=== PATIENT | female | born 1995 ===

== ENCOUNTER → 2019-05-30 | Outpatient (CLI) | payer SELFPAY ==
--- NOTE | 2019-05-30 14:12 | RADIOLOGY REPORT (SQ) ---
EXAM DESCRIPTION: U/S [id number] TRNABD 1GES W/ODOP COMPLETED DATE/TIME: 05/30/2019 1:37 pm REASON FOR STUDY: ENCTR FOR SUPERVISION OF OTHER NORMAL , 1ST TRIMESTER (Z34.81) Z34.81 EN COUNTER FOR SUPRVSN OF NORMAL , FIRST TRIM COMPARISON: None. TECHNIQUE: Transabdominal static and realtime grayscale images acquired of the pelvis. Additional se lected spectral and color Doppler images recorded. All images stored on PACs. [facility]. CLINICAL DATES: 10 weeks 1 day LIMITATIONS: None. FINDINGS: FETUS: Single Living intrauterine . ULTRASOUND EGA: 10 weeks 6 days. ULTRASOUND ABI: 12/20/2019 EFW: Not applicable less than 20 weeks. CRL: 3.92 cm. FHR: 160 beats per minute. SURVEY: Too early to assess. Suspect physiological mid gut herniation. AMNIOTIC FLUID: Adequate amount. PLACENTA: Not yet developed due to early gestation. SUBCHORIONIC BLEED: Yes. SIZE OF BLEED: 2.6 x 1.0 x 0.8 cm. UTERUS: No masses. No anomalies. CERVICAL LENGTH: 2.1 cm. Closed. RIGHT ADNEXA: Normal ovary with normal vascular flow. No adnexal free fluid. No adnexal masses. LEFT ADNEXA: Normal ovary with normal vascular flow. There is a complex 1.8 cm left ovarian cyst. No adnexal free fluid. No adnexal masses. FREE FLUID: None. OTHER: No other significant finding. IMPRESSION: LIVING INTRAUTERINE . SUSPECT PHYSIOLOGIC MID GUT HERNIATION. FOLLOW-UP AT 20 WEEKS GESTATIONAL AGE IS RECOMMENDED. EGA 10 WEEKS 6 DAYS. Trimester of : First trimester - 0 to 13 weeks. TECHNICAL DOCUMENTATION: JOB ID: [id number] 2010 [employer]- All Rights Reserved rev-08/05 Reading location - IP/workstation name: [email or web address]
== END ==
LOC: RAD 13:04
PROVIDERS: ATTEND Midwife
DX: Z34.81 Encounter for supervision of other normal pregnancy, first trimester (principal)
CPT/HCPCS: 76801

== ENCOUNTER 2019-11-21 16:43 | Outpatient (CLI) | payer MEDICAID ==
--- NOTE | 2019-11-21 18:53 | Non Stress Test Report ---
Non Stress Test Datetime Report Generated by CPN: 11/21/2019 18:53 DEMOGRAPHIC Test Number: 1 EGA NST: 35.1 INDICATION Indication for Study (NST) Other: repeat sent from office VITAL SIGNS Temperature - NST: 99.1 Pulse - NST: 78 RESP - NST: 16 NBPSYS NST: 120 NBPDIA NST: 68 MONITORING Monitor Explained: Monitor Explained; Test Explained; Patient Verbalized Understanding Time on Monitor: 11/21/2019 16:58 Time off Monitor: 11/21/2019 18:02 NST INTERVENTIONS NST Interventions: PO Hydration; Reposition Patient Physician Notified NST: Dr Perez BABY A: [id number] BABY A Movement : Present Contraction Frequency : occasional FHR Baseline : 150 Accelerations : 15X15 Decelerations : None Variability : Moderate 6-25bpm NST Review: Meets Criteria for Reactive NST NST Review and Verified By : KENDELL Haq Results: Reactive NST REPORT Report Trigger: Send Report
== END 2019-11-21 18:17 | disposition home or self-care (01) ==
LOC: LC 16:43
PROVIDERS: ATTEND Obstetrics & Gynecology
DX: Z34.83 Encounter for supervision of other normal pregnancy, third trimester (principal); Z3A.35 35 weeks gestation of pregnancy
CPT/HCPCS: 59025; 82962

== ENCOUNTER 2019-12-19 22:20 | Inpatient (IN) | payer MEDICAID ==
[2019-12-19] MEDS ORDERED: RINGERS SOLUTION,LACTATED 1,000 ML IV ONE (22:33)
[2019-12-19] MEDS ORDERED: RINGERS SOLUTION,LACTATED 1,000 ML IV PRN (22:33)
[2019-12-19] MEDS ORDERED: MISOPROSTOL 0.2 MG TABLET ONE (22:39)
[2019-12-19] MEDS ORDERED: LIDOCAINE 1% INJ-PF (10 MG/ML) 30 ML SDV ONE (22:39)
[2019-12-19] MEDS ORDERED: OXYTOCIN/0.9 % SODIUM CHLORIDE 30 UNIT/500 ML RTUINJ ONE (22:39)
[2019-12-19] MEDS ORDERED: OXYTOCIN 10 UNIT/ML VIAL ONE (22:39)
--- NOTE | 2019-12-19 22:39 | Admission Physical ---
Datetime Report Generated by CPN: 12/19/2019 22:38 CURRENT ADMISSION Chief Complaint: Uterine Contractions Chief Complaint Other: Complaints of contractions every 3 minutes. Very painful. NO LOF or VB. Good FM. Admit Impression : Active Labor Admit Plan: Admit to Unit; Initiate Labor Protocol ALLERGIES Medication Allergies: No Medication Allergies: No Known Allergies (11/21/2019) Latex: No Latex Allergies OBSTETRICAL HISTORY EDC: 12/25/2019 00:00 : 3 Para: 0 IAB: 2 PHYSICAL EXAM General: Normal HEENT: Normal Neurologic: Normal Thyroid: Normal Heart: Normal Lungs: Normal Breast: Normal Back: Normal Abdomen: Normal Genitourinary Exam: Normal Extremities: Normal DTRs: Normal Pelvic Type: Adequate Vital Signs: Reviewed; Within Normal Limits VAGINAL EXAM Dilatation: 6 Effacement: 90 Station: -1 Contraction Comments: every 3 minutes MEMBRANES Membranes: Intact FETUS A EGA: 39.1 Monitoring: External US FHR- Baseline: 150 Variability: Moderate 6-25bpm Accelerations: 15X15 Decelerations: None FHR Category: Category I Presentation: Vertex Admit Comment: at 39.1 wks EGA in active laobr -admit to LDR -NPO and IVFs, LR at 125 cc/hr after bolus of 1 liter -CEFM and toco -GBS negative -Anticipate -desires natural delivery INFORMED CONSENT Informed Consent Obtained: Vaginal Delivery; Vacuum/Forceps Assist; Risks, Benefits and Alternatives Discussed Signature: with User ID: [email or web address] : with User ID: [email or web address]
[2019-12-19 23:00] LABS: ABSOLUTE LYMPHOCYTES (AUTO) 2.8 10^3/uL (0.5-4.7); ABSOLUTE MONOCYTES (AUTO) 0.9 10^3/uL (0.1-1.4); ABSOLUTE NEUT (AUTO) 7.1 10^3/uL (1.7-8.2); BASOPHILS % (AUTO) 0.2 % (0-2); EOSINOPHILS % (AUTO) 0.4 % (0-6); HEMATOCRIT 35.8 % (36.0-47.0); HEMOGLOBIN 12.6 g/dL (12.0-15.5); LYMPHOCYTES % (AUTO) 25.8 % (13-45); MEAN CORPUSCULAR HGB CONC 35.1 g/dL (32.0-36.0); MEAN CORPUSCULAR VOLUME 88 fl (80-97); PLATELET COUNT 118 10^3/uL (150-450); RED BLOOD COUNT 4.05 10^6/uL (3.72-5.28); RED CELL DISTRIBUTION WIDTH 14.4 % (11.5-14.0); SEGMENTED NEUTROPHILS % (AUTO) 65.6 % (42-78); TOTAL CELLS COUNTED % (AUTO) 100 %; WHITE BLOOD COUNT 10.8 10^3/uL (4.0-10.5)
[2019-12-19 23:14] LABS: APPEARANCE,URINE SLIGHTLY-CLOUDY; BILIRUBIN,URINE NEGATIVE (NEGATIVE); COLOR,URINE YELLOW; GLUCOSE, URINE NEGATIVE (NEGATIVE); KETONES,URINE NEGATIVE (NEGATIVE); LEUKOCYTE ESTERASE,URINE MODERATE (NEGATIVE); NITRITE,URINE NEGATIVE (NEGATIVE); PROTEIN,URINE 30 mg/dL (NEGATIVE); URINE SPECIFIC GRAVITY 1.012; UROBILINOGEN,URINE NEGATIVE mg/dL (<2.0)
[2019-12-19] MEDS ORDERED: ONDANSETRON HCL INJ/PF 4 MG/2 ML SDV ONE (23:22)
[2019-12-19 23:38] LABS: URINE AMPHETAMINES SCREEN NEGATIVE; URINE BARBITURATES SCREEN NEGATIVE; URINE BENZODIAZEPINES SCREEN NEGATIVE; URINE COCAINE SCREEN NEGATIVE; URINE MARIJUANA (THC) SCREEN NEGATIVE; URINE METHADONE SCREEN NEGATIVE; URINE PHENCYCLIDINE SCREEN NEGATIVE
[2019-12-20] MEDS ORDERED: EPHEDRINE SULFATE INJ 50 MG/1 ML AMPULE ONE (00:28)
[2019-12-20] MEDS ORDERED: ROPIVACAINE HCL 0.2% INJ/PF (2 MG/ML) 20 ML SDV ONE (00:28)
[2019-12-20] MEDS ORDERED: FENTANYL/BUPIVACAINE/NS/PF 300 MCG/150 ML RTUINJ EPI ONE (00:28)
[2019-12-20] MEDS ORDERED: MAG HYDROX/AL HYDROX/SIMETH SUSP 30 ML UDCUP ONE (01:41)
[2019-12-20] MEDS ORDERED: PANTOPRAZOLE SODIUM 40 MG VIAL IV ONE (08:30)
[2019-12-20] MEDS ORDERED: ONDANSETRON HCL INJ/PF 4 MG/2 ML SDV ONE (08:40)
[2019-12-20] MEDS ORDERED: PROMETHAZINE HCL 25 MG SUPP.RECT PR PRN (12:41)
[2019-12-20] MEDS ORDERED: ACETAMINOPHEN WITH CODEINE #3 TABLET PO PRN (12:41)
[2019-12-20] MEDS ORDERED: MEASLES,MUMPS&RUBELLA VACC/PF 0.5 ML VIAL SUBCUT PRN (12:41)
[2019-12-20] MEDS ORDERED: DIPH/PERTUSS(ACELL)/TETANUS VAC/PF 0.5 ML SYR (>=10YO) IM PRN (12:41)
[2019-12-20] MEDS ORDERED: DIBUCAINE 1% OINTMENT 28 GM TP PRN (12:41)
[2019-12-20] MEDS ORDERED: PROMETHAZINE HCL INJ 25 MG/1 ML VIAL IV PRN (12:41)
[2019-12-20] MEDS ORDERED: DIPHENHYDRAMINE HCL 25 MG CAPSULE PO PRN (12:41)
[2019-12-20] MEDS ORDERED: BENZOCAINE/MENTHOL AEROSOL SPRAY 56 ML TOP PRN (12:41)
[2019-12-20] MEDS ORDERED: ZOLPIDEM TARTRATE 5 MG TABLET PO PRN (12:41)
[2019-12-20] MEDS ORDERED: OXYTOCIN/0.9 % SODIUM CHLORIDE 30 UNIT/500 ML RTUINJ IV PRN (12:41)
[2019-12-20] MEDS ORDERED: GLYCERIN/WITCH HAZEL LEAF 1 EACH MED..WIPE TP PRN (12:41)
[2019-12-20] MEDS ORDERED: PSEUDOEPHEDRINE HCL 30 MG TABLET PO PRN (12:41)
[2019-12-20] MEDS ORDERED: ACETAMINOPHEN 325 MG TABLET PO PRN (12:41)
[2019-12-20] MEDS ORDERED: NA PHOS,M-B/NA PHOS,DI-BA (ADULT) 133 ML ENEMA PR PRN (12:41)
[2019-12-20] MEDS ORDERED: PROMETHAZINE HCL 25 MG TABLET PO PRN (12:41)
[2019-12-20] MEDS ORDERED: MAGNESIUM HYDROXIDE SUSP 30 ML UDCUP PO PRN (12:41)
--- NOTE | 2019-12-20 12:56 | Delivery Summary ---
Del Sum A-C Datetime Report Generated by CPN: 12/20/2019 12:55 DELIVERY PERSONNEL DELIVERY PERSONNEL: [id number] Delivery Doctor:: Amy Bennett CNM Nurse Traffic Monitor Specialist Certified:: Amy Bennett CNM Labor and Delivery Nurse:: Shital Mccoy RNpicu nurse Nurse:: Blanca Meier RN Nursery Nurse:: Corine Sue RN Nursery Nurse:: Destinee Short RN Manager Digital/CLAY PIGE[employer] SETTER: Saray Mohan CNA II Additional Personnel: : Melinda Skinner, RNC MATERNAL INFORMATION Delivery Anesthesia: Epidural Medications After Delivery: Pitocin Bolus-Please Comment; Pitocin 30 Units in 500ml NS/D5W Meds After Delivery Comment: Pitocin Delivery QBL: 200 Maternal Complications: None LABOR SUMMARY EDC: 12/25/2019 00:00 No. Babies in Womb: 1 Attempted: No Labor Anesthesia: Epidural LABOR INFORMATION Reason for Induction: Not Applicable Onset of Labor: 12/19/2019 22:30 Complete Dilatation: 12/20/2019 09:51 Oxytocin: N/A Group B Beta Strep: negative Name of Antibiotic Given: NA Steroids Given: None Reason Steroids Not Administered: Not Applicable MEMBRANES Membranes Rupture Method: Spontaneous Rupture of Membranes: 12/19/2019 22:40 Length of Rupture (hr): 12.82 Amniotic Fluid Color: Clear Amniotic Fluid Amount: Moderate Amniotic Fluid Odor: Normal STAGES OF LABOR Stage 1 hr: 11 Stage 1 min: 21 Stage 2 hr: 1 Stage 2 min: 38 Stage 3 hr: 0 Stage 3 min: 6 Total Time in Labor hr: 13 Total Time in Labor min: 5 VAGINAL DELIVERY Episiotomy: None Laceration #1: Periurethral Laceration Extension #1: First Degree Other Laceration: R periurethral not repaired Laceration Repair: No Sponge Count Correct: N/A Sharps Count Correct: N/A CSECTION DELIVERY Primary Indication: N/A Secondary Indication: N/A CSection Incidence: N/A Labor: N/A Elective: N/A CSection Incision: N/A BABY A INFORMATION Delivery Date/Time: 12/20/2019 11:29 Method of Delivery: Vaginal Nurse Controlled Delivery: No Born in Route : No : N/A Forceps: N/A Vacuum Extraction: N/A Shoulder Dystocia : No PRESENTATION/POSITION BABY A Presentation: Cephalic Cephalic Presentation: Vertex Vertex Position: Right Occipital Anterior Breech Presentation: N/A PLACENTA INFORMATION BABY A Placenta Delivery Time : 12/20/2019 11:35 Placenta Method of Delivery: Spontaneous Placenta Status: Delivered SCORES BABY A Heart Rate 1 min: >100 bpm Resp Effort 1 min: Good Cry Reflex Irritability 1 min: Cough or Sneeze or Pulls Away Muscle Tone 1 min: Active Motion Color 1 min: Body [place], Extremities Blue Resuscitation Effort 1 min: Tactile Stimulation SCORE 1 MIN: 9 Heart Rate 5 min: >100 bpm Resp Effort 5 min: Good Cry Reflex Irritability 5 min: Cough or Sneeze or Pulls Away Muscle Tone 5 min: Active Motion Color 5 min: Body [place], Extremities Blue Resuscitation Effort 5 min: N/A SCORE 5 MIN: 9 Resuscitation Effort 10 min: N/A INFORMATION BABY A Gestational Age at Delivery: 39.2 Gestational Status: Full Term- 39- 40.6 Weeks Outcome : Liveborn Condition : Stable Infant Sex: Female IDENTIFICATION BABY A Verification Date/Time: 12/20/2019 12:10 ID Band Number: [id number] Mother's Name Verified: Yes Infant RN Verifying : Luis Enrique Mccoy, RN Additional Verifying Personnel: Karo Meier RN WEIGHT/LENGTH BABY A Birthweight (gm): 3420 Infant Weight (lb): 7 Infant Weight (oz): 9 Length (in): 19.50 Length (cm): 49.53 CORD INFORMATION BABY A No. Cord Vessels: 3 Nuchal Cord : N/A Cord Blood Taken: Yes-For Eval (Mom's Blood Type - or O+) Infant Suction: Mouth; Nose ASSESSMENT BABY A Infant Complications: Meconium Complications- Other: terminal mec Physical Findings at Delivery: Caput Succedaneum; Molding of the Head Infant Respirations: Appears Normal Skin to Skin: Yes Skin to Skin Time (min): 70 Acetylene Burner/ALS Called : No Infant Care By: Angeles Sue RN Transferred To: Remains with Mother BABY B INFORMATION : N/A
--- NOTE | 2019-12-20 12:56 | Birth Certificate Data ---
Cert Data Datetime Report Generated by CPN: 12/20/2019 12:55 CERTIFICATE DATA 47a. Care: Yes (11/21/2019 17:13:Pattie Gallagher RN) 47b. Date of First Visit: 05/18/2019 00:00 (11/21/2019 17:13:Shital Mccoy RN) 47c. Date of Last Visit: 12/18/2019 00:00 (11/21/2019 17:13:Shital Mccoy RN) 47d. Number of Visits: 13 (11/21/2019 17:13:Shital Mccoy RN) 48a. Number of Prev Live Births: 0 (11/21/2019 17:13:Shital Mccoy RN) 48b. Now Livin (11/21/2019 17:13:Shital Mccoy RN) 48c. Live Births Now : 0 (11/21/2019 17:13:QS system process) 48e. Losses: 0 (11/21/2019 17:13:Shital Mccoy RN) RISK FACTORS IN THIS 49a. Diabetes: Yes (11/21/2019 17:13:Pattie Gallagher RN) Type of Diabetes: Gestational Diabetes (11/21/2019 17:13:Pattie Gallagher RN) 49b. Hypertension: No (11/21/2019 17:13:Pattie Gallagher RN) 49c. Previous Births: 0 (11/21/2019 17:13:Shital Mccoy RN) 49d. Stillborns: No (11/21/2019 17:13:Pattie Gallagher RN) 49d. IUGR: No (11/21/2019 17:13:Pattie Gallagher RN) 49e. Infertility Treatment: No (11/21/2019 17:13:Pattie Gallagher RN) 49f. Previous Cesareans: 0 (11/21/2019 17:13:Shital Mccoy RN) Mother's Height 50b. Height Inches: 63 (12/20/2019 07:17:QS system process) Mother's Weight 51a. Pre- Weight (lbs): 118 (11/21/2019 17:13:Pattie Gallagher RN) 51b. Weight at Delivery (lbs): 147 (12/20/2019 07:17:QS system process) 52. Dt Last Normal Menses Began: 03/20/2019 00:00 (11/21/2019 17:13:Shital Mccoy RN) Infections Present/Treated 53a. Gonorrhea: No (11/21/2019 17:13:Pattie Gallagher RN) Results this Hospital Visit : Negative (11/21/2019 17:13:Pattie Gallagher RN) 53b. Syphilis: No (11/21/2019 17:13:Pattie Gallagher RN) 53c. Chlamydia: No (11/21/2019 17:13:Pattie Gallagher RN) Results this Hospital Visit: Negative (11/21/2019 17:13:Pattie Gallagher RN) 53d. Hepatitis B: No (11/21/2019 17:13:Pattie Gallagher RN) Results this Hospital Visit: Negative (11/21/2019 17:13:Pattie Gallagher RN) 53e. Hepatitis C: Negative (11/21/2019 17:13:Pattie Gallagher RN) 53h. Mother Tested for HBsAG: Yes (11/21/2019 17:13:Pattie Gallagher RN) 53i. Date Tested: 06/29/2019 00:00 (11/21/2019 17:13:Pattie Gallagher RN) 53j. Test Result: Negative (11/21/2019 17:13:Pattie Gallagher RN) Obstetric Procedures 54a, b, c. Obstetric Procedures: Ultrasound (11/21/2019 17:13:Pattie Gallagher RN) Cigarette Smoking Cigarette Smoking: Never Smoker. [id number] (11/21/2019 17:13:Pattie Gallagher RN) 55a. 3 Months Before Preg - Ci (11/21/2019 17:13:Pattie Gallagher RN) 55a. Packs: 0 (11/21/2019 17::Pattie Gallagher RN) 55b. 1st Trimester of Preg- Ci (11/21/2019 17:13:Pattie Gallagher RN) 55b. Packs: 0 (11/21/2019 17:13:Pattie Gallagher RN) 55c. 2nd Trimester of Preg- Ci (11/21/2019 17:13:Pattie Gallagher RN) 55c. Packs: 0 (11/21/2019 17:13:Pattie Gallagher RN) 55d. 3rd Trimester of Preg- Ci (11/21/2019 17:13:Pattie Gallagher RN) 55d. Packs: 0 (11/21/2019 17:13:Pattie Gallagher RN) Onset of Labor 56a. PROM >12 Hrs: 12.82 (12/19/2019 22:56:QS system process) 56b. Precipitous Labor <3 Hrs: 13 (11/21/2019 17:13:QS system process) 56c. Prolonged Labor > 20 Hrs: 13 (11/21/2019 17:13:QS system process) 57a. Induction of Labor: N/A (11/21/2019 17:13:Blanca Meier RN) 57c. Non-Vertex Presentation A: Vertex (11/21/2019 17:13:Blanca Meier RN) 57d. Steroids - Lung Mat: None (11/21/2019 17:13:Blanca Meier RN) 57d. Steroids - Lung Mat: Not Applicable (11/21/2019 17:13:Blanca Meier RN) 57f. Mat [place] or Temp >100.4: 100.1 (11/21/2019 17:13:Shital Mccoy RN) 57g. Moderate/Heavy Meconium: Clear (12/19/2019 22:40:Pattie Gallagher RN) 57h. Intolerance of Labor: N/A (11/21/2019 17:13:Blanca Meier RN) : N/A (11/21/2019 17:13:Blanca Meier RN) 57i. Epidural/Spinal Anesthesia: Epidural (11/21/2019 17:13:Blanca Meier RN) Method of Delivery 58a. Forceps - Unsuccessful A: N/A (11/21/2019 17:13:Blanca Meier RN) 58b. Vacuum - Unsuccessful A: N/A (11/21/2019 17:13:Blanca Meier RN) 58c. Presentation at 58c. Presentation at - A : Vertex (11/21/2019 17:13:Blanca Meier RN) 58c. Presentation at - A : N/A (11/21/2019 17:13:Blanca Meier RN) 58c. Presentation at - A : Cephalic (11/21/2019 17:13:Blanca Meier RN) Final Route and Method of Del 58d. Baby A Route/Delivery: Vaginal (12/20/2019 11:29:Shital Mccoy RN) 58e. Trial of Labor Attempted: No (11/21/2019 17:13:Blanca Meier RN) 58e. Trial of Labor Attempted A: N/A (11/21/2019 17:13:Blanca Meier RN) 58e. Trial of Labor Attempted B: N/A (11/21/2019 17:13:Blanca Meier RN) Maternal Morbidity 59b. 3rd or 4th Degree Lacs: Periurethral (11/21/2019 17:13:Blanca Meier RN) 59b. 3rd or 4th Degree Lacs: R periurethral not repaired (11/21/2019 17:13:Blanca Feuston, RN) Birthweight Baby A: 3420 (11/21/2019 17:13:Shital Sales, RN) 60a. Pounds : 7 (11/21/2019 17:13:QS system process) 60b. Ounces: 9 (11/21/2019 17:13:QS system process) 61. GA at Delivery Baby A: 39.2 (11/21/2019 17:13:Blanca Feuston, RN) : Full Term- 39- 40.6 Weeks (11/21/2019 17:13:QS system process) 62a. 5 Minute Baby A: 9 (11/21/2019 17:13:QS system process)
[2019-12-20] MEDS ORDERED: IBUPROFEN 800 MG TABLET ONE (13:54)
[2019-12-20] MEDS: IBUPROFEN 800 MG TABLET PO SCH ×2 (13:56→22:17)
[2019-12-20] MEDS: DOCUSATE SODIUM 100 MG CAPSULE PO SCH (18:56)
[2019-12-20] MEDS: FERROUS SULFATE 325 MG TABLET PO SCH (18:56)
[2019-12-20] MEDS: ACETAMINOPHEN WITH CODEINE #3 TABLET PO PRN (20:08)
[2019-12-20] MEDS: FAMOTIDINE 20 MG TABLET PO SCH (22:15)
[2019-12-21] MEDS: IBUPROFEN 800 MG TABLET PO SCH ×3 (05:37→21:12)
[2019-12-21 06:49] LABS: HEMATOCRIT 29.8 % (36.0-47.0); MEAN CORPUSCULAR HEMOGLOBIN 31.3 pg (27.0-33.4); MEAN CORPUSCULAR VOLUME 89 fl (80-97); PLATELET COUNT 100 10^3/uL (150-450); RED BLOOD COUNT 3.33 10^6/uL (3.72-5.28); RED CELL DISTRIBUTION WIDTH 14.8 % (11.5-14.0); WHITE BLOOD COUNT 13.2 10^3/uL (4.0-10.5)
[2019-12-21 06:53] LABS: HEMOGLOBIN 10.4 g/dL (12.0-15.5)
[2019-12-21] MEDS: SENNOSIDES/DOCUSATE 8.6-50 MG 1 EACH TABLET PO SCH (10:07)
[2019-12-21] MEDS: DOCUSATE SODIUM 100 MG CAPSULE PO SCH ×2 (10:07→17:55)
[2019-12-21] MEDS: FAMOTIDINE 20 MG TABLET PO SCH ×2 (10:07→21:12)
[2019-12-21] MEDS: PRENATAL VITAMIN W DHA CAPSULE PO SCH (10:07)
[2019-12-21] MEDS: FERROUS SULFATE 325 MG TABLET PO SCH ×2 (10:07→17:55)
--- NOTE | 2019-12-21 11:05 | PDOC PROGRESS REPORT ---
Subjective-OB Progress Note for:: 12/21/19 - PP day #1, doing well, O+. , UOB, no complaints Physical Exam (OB) Vital Signs: Temp Pulse Resp BP Pulse Ox 97.5 F 60 18 104/58 L 100 12/21/19 09:07 12/21/19 09:07 12/21/19 09:07 12/21/19 09:07 12/21/19 09:07 Intake & Output 12/20/19 12/21/19 12/22/19 06:59 06:59 06:59 Intake Total 1450 Output Total 1 Balance 1449 Weight 67.2 kg - General General Appearance: Appears well, Alert - PIH/Pre-Eclampsia DTR's: 2 + Clonus: Negative Headache: Absent Epigastric Pain: No Visual Changes: No - Maternal Morbidity 59. Maternal Morbidity (serious complications experinced by the mother associated with labor and delivery: None of the above - Lochia Lochia Amount: Scant < 10 ml Lochia Color: Rubra/Red - Abdomen Description: Soft, Round Hernia Present: No Fundal Description: Firm, Midline Fundal Height: u/u - u/2 - Respiratory Respiratory Status: No respiratory distress - Abdominal Inspection: Normal Distension: No distension Tenderness: Nontender - Extremities Upper extremity: Normal inspection Lower extremities: Normal inspection - Neurological Cognition: Normal Orientation: AAOx4 - Psychological Associated symptoms: Normal affect, Normal mood - Skin Skin Temperature: Warm Skin Moisture: Dry Objective-Diagnostic Laboratory: 12/21/19 06:06 12/21/19 06:06 WBC 13.2 H RBC 3.33 L Hgb 10.4 L D Hct 29.8 L MCV 89 MCH 31.3 MCHC 35.0 RDW 14.8 H Plt Count 100 L Assessment and Plan(PN) - Assessment and Plan (1) Normal vaginal delivery Is this a current diagnosis for this admission?: Yes (2) Spontaneous onset of labor Is this a current diagnosis for this admission?: Yes Plan:: ambulation encouraged, Routine PP orders - Time Spent with Patient Time with patient: Less than 15 minutes Medications reviewed and adjusted accordingly: Yes - Disposition Anticipated Discharge Disposition: Home, Self Care Anticipated Discharge Timeframe: within 24 hours
[2019-12-21] MEDS: ACETAMINOPHEN WITH CODEINE #3 TABLET PO PRN ×2 (17:57→23:11)
[2019-12-22] MEDS: IBUPROFEN 800 MG TABLET PO SCH (05:13)
[2019-12-22] MEDS: SENNOSIDES/DOCUSATE 8.6-50 MG 1 EACH TABLET PO SCH (09:54)
[2019-12-22] MEDS: PRENATAL VITAMIN W DHA CAPSULE PO SCH (09:54)
[2019-12-22] MEDS: FERROUS SULFATE 325 MG TABLET PO SCH (09:54)
[2019-12-22] MEDS: DOCUSATE SODIUM 100 MG CAPSULE PO SCH (09:54)
[2019-12-22] MEDS: FAMOTIDINE 20 MG TABLET PO SCH (09:54)
--- NOTE | 2019-12-22 10:12 | PDOC DISCHARGE SUMMARY ---
Impression - Admit/DC Date/PCP Admission Date/Primary Care Provider: 12/19/19 22:34 MELVIN TOBIAS MD Discharge Date: 12/22/19 - PP Day #2, doing well, O+, - Discharge Diagnosis (1) Normal vaginal delivery Is this a current diagnosis for this admission?: Yes (2) Spontaneous onset of labor Is this a current diagnosis for this admission?: Yes - Additional Information Resuscitation Status: Full Code Discharge Diet: As Tolerated, Regular Discharge Activity: Activity As Tolerated, No Lifting Over 10 Pounds, Pelvic Rest Referrals: MELVIN TOBIAS MD [Primary Care Provider] - Prescriptions: Ibuprofen [Motrin 800 mg Tablet] 800 mg PO Q8 #60 tablet Home Medications: Pnv No.95/Ferrous Fum/Folic AC [ Vitamins Tablet] 1 each PO DAILY 11/21/19 Ibuprofen [Motrin 800 mg Tablet] 800 mg PO Q8 #60 tablet 12/22/19 HPI Reason(s) for Admission: Onset of Labor Procedures: Ultrasound Intrapartum Procedure(s): Spontaneous Vaginal Delivery Hospital Course Hospital Course: normal 59. Maternal Morbidity (serious complications experinced by the mother associated with labor and delivery: None of the above Results Laboratory Results: WBC 13.2 10^3/uL (4.0-10.5) H 12/21/19 06:06 RBC 3.33 10^6/uL (3.72-5.28) L 12/21/19 06:06 Hgb 10.4 g/dL (12.0-15.5) L D 12/21/19 06:06 Hct 29.8 % (36.0-47.0) L 12/21/19 06:06 MCV 89 fl (80-97) 12/21/19 06:06 MCH 31.3 pg (27.0-33.4) 12/21/19 06:06 MCHC 35.0 g/dL (32.0-36.0) 12/21/19 06:06 RDW 14.8 % (11.5-14.0) H 12/21/19 06:06 Plt Count 100 10^3/uL (150-450) L 12/21/19 06:06 Lymph % (Auto) 25.8 % (13-45) 12/19/19 22:49 [place] % (Auto) 8.0 % (3-13) 12/19/19 22:49 Eos % (Auto) 0.4 % (0-6) 12/19/19 22:49 Baso % (Auto) 0.2 % (0-2) 12/19/19 22:49 Absolute Neuts (auto) 7.1 10^3/uL (1.7-8.2) 12/19/19 22:49 Absolute Lymphs (auto) 2.8 10^3/uL (0.5-4.7) 12/19/19 22:49 Absolute Monos (auto) 0.9 10^3/uL (0.1-1.4) 12/19/19 22:49 Absolute Eos (auto) 0.0 10^3/uL (0.0-0.6) 12/19/19 22:49 Absolute Basos (auto) 0.0 10^3/uL (0.0-0.2) 12/19/19 22:49 Seg Neutrophils % 65.6 % (42-78) 12/19/19 22:49 Urine Color YELLOW 12/19/19 22:30 Urine Appearance SLIGHTLY-CLOUDY 12/19/19 22:30 Urine pH 7.0 (5.0-9.0) 12/19/19 22:30 Ur Specific [place] 1.012 12/19/19 22:30 Urine Protein 30 mg/dL (NEGATIVE) H 12/19/19 22:30 Urine Glucose (UA) NEGATIVE mg/dL (NEGATIVE) 12/19/19 22:30 Urine Ketones NEGATIVE mg/dL (NEGATIVE) 12/19/19 22:30 Urine Blood NEGATIVE (NEGATIVE) 12/19/19 22:30 Urine Nitrite NEGATIVE (NEGATIVE) 12/19/19 22:30 Urine Bilirubin NEGATIVE (NEGATIVE) 12/19/19 22:30 Urine Urobilinogen NEGATIVE mg/dL (<2.0) 12/19/19 22:30 Ur Leukocyte Esterase MODERATE (NEGATIVE) H 12/19/19 22:30 Urine Ascorbic Acid NEGATIVE (NEGATIVE) 12/19/19 22:30 Urine Opiates Screen NEGATIVE 12/19/19 22:30 Urine Methadone Screen NEGATIVE 12/19/19 22:30 Ur Barbiturates Screen NEGATIVE 12/19/19 22:30 Ur Phencyclidine Scrn NEGATIVE 12/19/19 22:30 Ur Amphetamines Screen NEGATIVE 12/19/19 22:30 U Benzodiazepines Scrn NEGATIVE 12/19/19 22:30 Urine Cocaine Screen NEGATIVE 12/19/19 22:30 U Marijuana (THC) Screen NEGATIVE 12/19/19 22:30 Blood Type O POSITIVE 12/19/19 22:49 Antibody Screen NEGATIVE 12/19/19 22:49 Plan Plan of Treatment: d/c home, f/up with [facility] in 4 wks for PP check Time Spent: Less than 30 Minutes
[2019-12-22 10:51] VITALS: BP 104/58
[2019-12-22] MEDS: ACETAMINOPHEN WITH CODEINE #3 TABLET PO PRN (11:25)
== END 2019-12-22 11:59 | disposition home or self-care (01) | DRG 807 ==
LOC: LC 22:20 → LR 22:34 → 2S 12-20 17:15
PROVIDERS: ADMIT Obstetrics & Gynecology; ATTEND Obstetrics & Gynecology
PROC: 10E0XZZ Delivery of Products of Conception, External Approach (ICD-10-PCS; principal; 2019-12-20)
DX: O77.0 Labor and delivery complicated by meconium in amniotic fluid (principal); Z37.0 Single live birth; O71.82 Other specified trauma to perineum and vulva; Z3A.39 39 weeks gestation of pregnancy
CPT/HCPCS: 1967; 36415; 80307; 81005; 85025; 85027; 86850; 86900; 86901; C9113; J2405; J2590; J2795; J3010; J3490